=== PATIENT | male | born 1940 | race African-American/Black ===

== ENCOUNTER 2025-08-05 08:11 | Emergency (ER) | payer MEDICARE, OTHER ==
[~2025-08-05] VITALS: Ht 175.3 cm; Wt 69.0 kg
[2025-08-05 08:19] VITALS: O2SAT 100
[2025-08-05] MEDS ORDERED: P20 MT (09:03)
[2025-08-05 09:12] VITALS: BP 118/80; PULSE 96; RESP 16; TEMP 37.1; O2SAT 100
[2025-08-05] MEDS: PREDNISONE 20MG TABLET PO STA (09:12)
== END 2025-08-05 09:13 | disposition home or self-care (01) ==
LOC: ER 08:15
DX: M79.641 Pain in right hand (principal); I10 Essential (primary) hypertension
CPT/HCPCS: 99283; J7512

== ENCOUNTER 2025-08-14 16:56 | Inpatient (IN) | payer MEDICARE, OTHER ==
[~2025-08-14] VITALS: Ht 175.3 cm; Wt 61.7 kg
[~2025-08-14 16:56] MED LIST: NAPR-1176 MT; P20 MT
[2025-08-14 17:15] VITALS: O2SAT 99
[2025-08-14 18:08] LABS: BASOPHILS % 0.4 % (0.0-2.0); EOSINOPHILS % 3.8 % (0.0-5.0); HEMATOCRIT. 40.9 % (42.0-52.0); HEMOGLOBIN. 13.6 g/dL (14.0-18.0); LYMPHOCYTES % 41.5 % (20.0-50.0); MEAN PLATELET VOLUME 11.5 fl (7.4-10.4); MONOCYTES % 7.6 % (2.0-8.0); NEUTROPHILS % 46.7 % (40.0-76.0); PLATELET 163 x1000/uL (130-400); RED BLOOD CELL COUNT 4.46 mill/uL (4.7-6.1); RED CELL DISTRIBUTION WIDTH 14.7 % (11.6-14.6)
[2025-08-14 18:21] LABS: CREATININE 1.4 mg/dL (0.6-1.3); PROTEIN TOTAL 6.8 g/dL (6.0-8.3); UREA NITROGEN BLOOD 24 mg/dL (9-23)
[2025-08-14] MEDS: ACETAMINOPHEN 325MG TABLET PO ONE (18:21)
[2025-08-14 18:22] LABS: TROPONIN I HIGH SENSITIVITY 11 ng/L (3.0-53)
[2025-08-14 18:23] LABS: ASPARTATE AMINOTRANSFERASE 14 IU/L (<34); BILIRUBIN DIRECT 0.2 mg/dL (<=3.0); BILIRUBIN TOTAL 0.7 mg/dL (0.1-1.0)
[2025-08-14] MEDS: ASPIRIN 81MG TABLET PO ONE (21:03)
[2025-08-14] MEDS: POTASSIUM CHLORIDE 20MEQ/PACKET PO ONE (21:04)
[2025-08-14] MEDS ORDERED: IPRATROPIUM/ALBUTEROL 0.5-3(2.5)MG/3ML NEB HHN PRN (21:15)
[2025-08-14] MEDS ORDERED: CLONIDINE 0.1MG TABLET PO PRN (21:15)
[2025-08-14] MEDS ORDERED: ONDANSETRON HCL 4MG/2ML INJ IV PRN (21:15)
[2025-08-14] MEDS ORDERED: ACETAMINOPHEN 325MG TABLET PO PRN ×2 (21:15)
[2025-08-14 21:30] VITALS: BP 102/75; PULSE 76; RESP 16; TEMP 36.6; TEMP 36.6404; O2SAT 100
[2025-08-15] VITALS: BP 111/76; PULSE 15; PULSE 74; RESP 15; TEMP 36.8; O2SAT 100
[2025-08-15] MEDS ORDERED: GABA-1180 MT (01:53)
[2025-08-15] MEDS ORDERED: BENA40TA91 MT (01:53)
[2025-08-15] MEDS ORDERED: AMLO10TA80 MT (01:53)
[2025-08-15] MEDS ORDERED: HYDR50TA55 MT (01:53)
[2025-08-15] MEDS: INFLUENZA VACCINE 05/PF 0.5 ML SYRINGE IM ONE (03:00)
[2025-08-15 03:50] LABS: CLARITY URINE CLOUDY (CLEAR); COLOR URINE DARK YELLOW (YELLOW); GLUCOSE URINE NEGATIVE (NEGATIVE); KETONES URINE TRACE (NEGATIVE); LEUKOCYTE ESTERASE URINE 1+ (NEGATIVE); NITRITE URINE POSITIVE (NEGATIVE); OCCULT BLOOD URINE NEGATIVE (NEGATIVE); PH URINE 5.0 (4.5-8.0); PROTEIN URINE 1+ (NEGATIVE); SPECIFIC GRAVITY URINE 1.029 (1.005-1.030); UROBILINOGEN URINE 1.0 E.U./dL (0.2-1.0)
[2025-08-15 04:00] VITALS: BP 102/65; PULSE 62; RESP 15; TEMP 36.7; O2SAT 100
[2025-08-15 04:09] LABS: *AMPHETAMINES SCREEN URINE NEGATIVE (NEGATIVE)
[2025-08-15 04:10] LABS: *BARBITURATES SCREEN URINE NEGATIVE (NEGATIVE); *BENZODIAZEPINES SCREEN URINE NEGATIVE (NEGATIVE); *COCAINE SCREEN URINE NEGATIVE (NEGATIVE); CANNABINOID URINE SCREEN NEGATIVE (NEGATIVE); ECSTASY MDMA SCREEN URINE NEGATIVE (NEGATIVE); METHADONE URINE SCREEN NEGATIVE (NEGATIVE); OPIATES URINE SCREEN NEGATIVE (NEGATIVE); PHENCYCLIDINE URINE SCREEN NEGATIVE (NEGATIVE)
[2025-08-15 06:05] LABS: RBC URINE 0-2 /hpf (0-2); SQUAMOUS EPITHELIAL CELL URINE FEW /lpf (RARE/1+)
[2025-08-15 06:06] LABS: BACTERIA URINE 3+
[2025-08-15] MEDS: SODIUM CHLORIDE 0.45% 1,000 ML IV SCH (07:00)
[2025-08-15 07:30] LABS: BASOPHILS % 1.2 % (0.0-2.0); EOSINOPHILS % 4.8 % (0.0-5.0); HEMATOCRIT. 38.5 % (42.0-52.0); HEMOGLOBIN. 12.9 g/dL (14.0-18.0); LYMPHOCYTES % 44.4 % (20.0-50.0); MEAN PLATELET VOLUME 11.0 fl (7.4-10.4); MONOCYTES % 6.7 % (2.0-8.0); NEUTROPHILS % 42.9 % (40.0-76.0); PLATELET 128 x1000/uL (130-400); RED BLOOD CELL COUNT 4.15 mill/uL (4.7-6.1); RED CELL DISTRIBUTION WIDTH 14.6 % (11.6-14.6)
[2025-08-15 07:38] LABS: CREATININE 1.1 mg/dL (0.6-1.3); TRIGLYCERIDE 63 mg/dL (0-150); UREA NITROGEN BLOOD 21 mg/dL (9-23)
[2025-08-15 07:39] LABS: LDL CHOLESTEROL 122 mg/dL (5-100)
[2025-08-15 07:40] LABS: PHOSPHORUS 3.0 mg/dL (2.5-4.9)
[2025-08-15 07:42] LABS: T4 FREE 1.25 ng/dL (0.89-1.76)
[2025-08-15 07:43] LABS: FOLIC ACID (FOLATE) SERUM 5.83 ng/mL (>5.38); VITAMIN B12 SERUM 215 pg/mL (211-911)
[2025-08-15 08:00] VITALS: BP_SYST 109; BP_SYST 118; BP_SYST 120; BP_DIAS 74; BP_DIAS 75; BP_DIAS 85; PULSE 77; RESP 13; TEMP 36.6; O2SAT 100
[2025-08-15] MEDS: PANTOPRAZOLE SODIUM 40 MG/VIAL IV SCH (09:49)
[2025-08-15] MEDS: CEFTRIAXONE 1GM/50ML 50 ML IV SCH (09:50)
[2025-08-15] MEDS: ENOXAPARIN 30MG/0.3ML SYR SUBCUT SCH (09:50)
[2025-08-15 12:00] VITALS: BP 109/77; PULSE 71; RESP 15; TEMP 36.6; O2SAT 100
[2025-08-15 16:00] VITALS: BP 124/82; PULSE 82; RESP 19; TEMP 36.7; O2SAT 98
[2025-08-15 20:00] VITALS: BP 108/71; PULSE 72; RESP 16; TEMP 36.7; O2SAT 99
[2025-08-16] VITALS: BP 127/79; PULSE 89; RESP 16; TEMP 36.6; O2SAT 98
[2025-08-16 04:00] VITALS: BP_SYST 114; BP_SYST 115; BP_SYST 136; BP_DIAS 78; BP_DIAS 84; BP_DIAS 91; PULSE 67; RESP 14; TEMP 36.5; O2SAT 100
[2025-08-16 08:00] VITALS: BP 115/86; PULSE 81; RESP 19; TEMP 36.7; O2SAT 100
[2025-08-16 12:00] VITALS: BP 105/72; PULSE 76; RESP 20; TEMP 37.1; O2SAT 99
[2025-08-16] MEDS: CYANOCOBALAMIN 1000MCG/ML VIAL IM SCH (15:30)
[2025-08-16 16:00] VITALS: BP 127/77; PULSE 76; RESP 21; TEMP 36.6; O2SAT 100
[2025-08-16 20:00] VITALS: BP_SYST 116; BP_SYST 120; BP_SYST 126; BP_DIAS 77; BP_DIAS 80; BP_DIAS 85; PULSE 84; RESP 14; TEMP 36.7; O2SAT 99
[2025-08-17] VITALS: BP 101/66; PULSE 72; RESP 16; TEMP 36.8; O2SAT 98
[2025-08-17 04:00] VITALS: BP 117/72; PULSE 76; RESP 16; TEMP 36.6; O2SAT 100
[2025-08-17 08:00] VITALS: BP 119/78; PULSE 80; RESP 18; TEMP 36.7; O2SAT 99
[2025-08-17] MEDS ORDERED: CYAN100081 PO (11:35)
[2025-08-17 12:00] VITALS: BP 119/78; PULSE 80; RESP 18; TEMP 36.7; O2SAT 99
[2025-08-17 12:09] VITALS: BP 126/86; PULSE 86; RESP 24; TEMP 98.1
[2025-08-29] MEDS ORDERED: CYANOCOBALAMIN 1000MCG/ML VIAL IM SCH (09:00)
== END 2025-08-17 14:30 | disposition home health service (06) | DRG 640 ==
LOC: ER 16:56 → 3WST 20:10 → EDBEDREQTM 20:11 → EDBEDREQ 20:11 → ENRESERV 20:37 → 3WST 21:30
PROVIDERS: ADMIT Internal Medicine; ATTEND Internal Medicine
DX: E87.6 Hypokalemia (principal); G82.50 Quadriplegia, unspecified; L89.153 Pressure ulcer of sacral region, stage 3; N17.9 Acute kidney failure, unspecified; N39.0 Urinary tract infection, site not specified; I10 Essential (primary) hypertension; D64.9 Anemia, unspecified; M19.041 Primary osteoarthritis, right hand; E87.0 Hyperosmolality and hypernatremia; M48.02 Spinal stenosis, cervical region; M48.061 Spinal stenosis, lumbar region without neurogenic claudication; L81.8 Other specified disorders of pigmentation; M47.9 Spondylosis, unspecified; E53.8 Deficiency of other specified B group vitamins; R53.81 Other malaise; R26.9 Unspecified abnormalities of gait and mobility; G89.29 Other chronic pain; Z79.899 Other long term (current) drug therapy
CPT/HCPCS: 36415; 71045; 72100; 72131; 72141; 72148; 73120; 80048; 80061; 80076; 80305; 81003; 82550; 82607; 82728; 82746; 83036; 83540; 83550; 83735; 84100; 84439; 84443; 84484; 85025; 85651; 90686; 93005; 96372; 97162; 97166; 99285; A4606; J0696; J1650; J1885; J2470; J3420

== ENCOUNTER 2025-08-30 05:25 | Emergency (ER) | payer MEDICARE, OTHER ==
[~2025-08-30] VITALS: Ht 175.3 cm; Wt 72.0 kg
[~2025-08-30 05:25] MED LIST changes: +AMLO10TA80 MT; +BENA40TA91 MT; +CYAN100081 PO; +GABA-1180 MT; +HYDR50TA55 MT; -P20 MT
[2025-08-30 05:45] VITALS: O2SAT 99
[2025-08-30] MEDS ORDERED: HYDR50TA55 MT (07:07)
[2025-08-30] MEDS ORDERED: BENA40TA91 MT (07:07)
[2025-08-30] MEDS ORDERED: NAPR-1176 MT (07:07)
[2025-08-30] MEDS ORDERED: GABA-1180 MT (07:07)
[2025-08-30] MEDS ORDERED: CYAN100081 PO (07:07)
[2025-08-30] MEDS ORDERED: AMLO10TA80 MT (07:07)
[2025-08-30] MEDS ORDERED: NAPR-673 MT (07:08)
[2025-08-30 07:34] VITALS: BP 105/67; PULSE 92; RESP 18; TEMP 36.7; O2SAT 99
== END 2025-08-30 07:37 | disposition home or self-care (01) ==
LOC: ER 05:25
DX: Z00.8 Encounter for other general examination (principal); Z76.0 Encounter for issue of repeat prescription; Z79.1 Long term (current) use of non-steroidal anti-inflammatories (NSAID)
CPT/HCPCS: 99282